=== PATIENT | female | born 1935 | race Caucasian/White ===

== ENCOUNTER 2017-08-27 07:54 | Emergency (ER) | payer MEDICARE, BC ==
[2017-08-27 08:45] LABS: #Basophils 0.1 thou/uL (0.0-0.2); #Eosinphils 0.1 thou/uL (0.0-0.7); #Lymphocytes 1.2 thou/uL (1.20-3.40); #Monocytes 1.1 thou/uL (0.11-0.59); #Neutrophils 6.7 thou/uL (1.40-6.50); %Basophils 0.9 % (0.0-1.0); %Eosinophils 1.3 % (0.0-10.0); %Lymphocytes 13.2 % (21.0-51.0); %Monocytes 11.8 % (0.0-10.0); %Neutrophils 72.8 % (42.0-75.0); Hemoglobin 13.4 g/dL (12.0-16.0); Mean Corpuscular HGB CONC 32.6 g/dL (32.0-36.0); Mean Corpuscular Volume 91.9 fl (81.0-99.0); Mean Platelet Volume 8.5 fL (7.4-10.4); Platelet Count 195 thou/uL (130-400); RBC Distribution Width 12.1 % (11.5-14.5); Red Blood Cell (RBC) Count 4.47 mill/uL (4.20-5.40); White Blood Cell (WBC) Count 9.2 thou/uL (4.8-10.8)
[2017-08-27 09:00] LABS: CKMB 0.8 ng/mL (0-6.6)
[2017-08-27 09:03] LABS: ALT (SGPT) 8 U/L (8-55); AST (SGOT) 14 U/L (5-34); Albumin 3.7 g/dL (3.4-4.8); Alkaline Phosphatase 88 U/L (40-150); Anion Gap 17 mmol/L (10-20); BUN (Urea Nitrogen) 19 mg/dL (9.8-20.1); Bilirubin, Total 0.7 mg/dL (0.2-1.2); Calc. Creatinine Clearance 0 mL/min (70-130); Calcium 8.8 mg/dL (7.8-10.44); Carbon Dioxide 26 mmol/L (23-31); Chloride 100 mmol/L (98-107); Estimated GFR-MDRD 28; Globulin 2.7 g/dL (2.4-3.5); Glucose 102 mg/dL (83-110); Potassium 4.6 mmol/L (3.5-5.1); Protein, Total 6.4 g/dL (6.0-8.3); Sodium 138 mmol/L (136-145)
[2017-08-27] MEDS ORDERED: Pantoprazole 40 MG VIAL ONE (09:09)
[2017-08-27 09:19] LABS: Digoxin 0.66 ng/mL (0.8-2.0); Troponin I 0.036 ng/mL (< 0.028)
--- NOTE | 2017-08-27 21:17 | RAD ---
PORTABLE CHEST 08/27/17 An AP portable film at 0803 is compared with a 09/20/15 study. The heart is normal in size. Some faint calcification is seen in the aorta as usual. There is no vasc ular congestion, edema or pleural effusion. Very minor blunting of the right costophrenic angle may j ust be positioning. There appears to be some scarring in the left base which is no different than bef ore. IMPRESSION: No acute thoracic findings. POS: HOME
== END 2017-08-27 10:14 | disposition home or self-care (01) ==
LOC: BURERS 07:54
DX: R53.1 Weakness (principal); K92.1 Melena; I11.0 Hypertensive heart disease with heart failure; I50.9 Heart failure, unspecified; E78.5 Hyperlipidemia, unspecified
CPT/HCPCS: 36415; 71045; 80053; 80162; 82274; 82553; 83880; 84443; 84484; 85025; 93005; 96374; C9113